=== PATIENT | female | born 1980 | race African-American/Black ===

== ENCOUNTER 2016-12-15 09:35 | Inpatient (IN) | payer OTHER ==
[~2016-12-15] VITALS: Ht 160 cm; Wt 107.0 kg
[~2016-12-15 09:35] MED LIST: ANT12.5 PO; ATI1 PO; ATIVAN2 MG PO; COL100 PO; DURAGESIC100 MCG/HR TOP; FER300 PO; GABAPENTIN100 M2 PO; LAC PO; LYRICA75 M1 PO; MEDDP PO; METFORMIN ER500 M1 PO; NPHOS PO; OXY20 PO; OXYC PO; OXYCONTIN30 M1 PO; PERCOCET1 TA2 PO; PLA200 PO; PLAQUENIL200 MG; PRE5 PO; PRI20 PO; PROMETHAZINE HY25 M1 PO; PROVENTIL0.09 MG/A1 INH; SEROQUEL400 M1 PO; THERAGRAN-M1 TA4 PO; VITC PO; XANAX2 MG PO; ZIT250 PO; ZOFRAN ODT4 MG SL; ZOFRAN8 MG PO
[2016-12-15 12:35] LABS: microscopic required? NO
[2016-12-15 12:50] LABS: CALCIUM 8.5 mg/dL (8.5-10.1); CARBON DIOXIDE 27.4 mmol/L (21-32); CHLORIDE SERUM 107 mmol/L (98-107); CREATININE SERUM 0.8 mg/dL (0.6-1.0); GFR1 > 60 mL/min; GLUCOSE SERUM 91 mg/dL (74-106); POTASSIUM SERUM 3.5 mmol/L (3.5-5.1); SODIUM SERUM 141 mmol/L (136-145)
[2016-12-15 12:52] LABS: UA SPECIFIC GRAVITY 1.025 (1.005-1.035); urine erythrocyte NEGATIVE (NEGATIVE)
[2016-12-15 12:56] LABS: ALKALINE PHOSPHATASE 84 U/L (46-116); ALT/SGPT 19 U/L (14-59); AST/SGOT 7 U/L (15-37); BILIRUBIN TOTAL 0.2 mg/dL (0.20-1.00); CHOLESTEROL 192 mg/dL (<200); LIPASE 122 IU/L (73-393); TOTAL PROTEIN, SERUM 7.4 g/dL (6.4-8.2); TRIGLYCERIDES 57 mg/dL (<150)
[2016-12-15 12:57] LABS: ALBUMIN 3.3 g/dL (3.4-5.0); CHOLESTEROL/HDL RATIO 2.3; HDL CHOLESTEROL 82 mg/dL (40-60)
[2016-12-15 13:02] LABS: BASOPHIL % 0.6 % (0-2); PLATELET COUNT 232 x10^3mcL (130-400)
[2016-12-15 13:05] LABS: T3 TOTAL 1.2 ng/mL
[2016-12-15 13:28] LABS: RED CELL DISTRIBUTION WIDTH 14.9 % (11.5-14.5)
[2016-12-15 13:33] LABS: FREE THYROXINE INDEX 3.4 ug/dL (1.4-4.5); T4(THYROXINE) 11.6 ug/dL (4.7-13.3)
[2016-12-15 13:49] LABS: rbc morphology (normal/abnorm) ABNORMAL (NORMAL)
[2016-12-15 13:50] LABS: target cell (codocyte) 1+
[2016-12-15 15:10] LABS: PHOSPHOROUS 2.6 mg/dL (2.5-4.9)
[2016-12-15 15:12] LABS: AMPHETAMINE QUAL UR NONE DETECTED (NEG <=1000)
[2016-12-15] MEDS ORDERED: IBUPROFEN400 MG PO (15:19)
[2016-12-15] MEDS ORDERED: XANAX2 MG PO (15:20)
[2016-12-15] MEDS ORDERED: METFORMIN HCL750 MG PO (15:20)
[2016-12-15] MEDS ORDERED: APAP/OXYCODONE1 TA4 PO (15:21)
[2016-12-15 15:52] VITALS: BP 140/85
[2016-12-15 21:25] VITALS: BP 117/78
[2016-12-16 05:49] VITALS: BP 135/82
[2016-12-16 06:03] LABS: PLATELET COUNT 223 x10^3mcL (130-400)
[2016-12-16 06:17] LABS: BASOPHIL % 0 % (0-2); RED CELL DISTRIBUTION WIDTH 15.3 % (11.5-14.5)
[2016-12-16 06:19] LABS: CALCIUM 8.8 mg/dL (8.5-10.1); CARBON DIOXIDE 22.7 mmol/L (21-32); CHLORIDE SERUM 106 mmol/L (98-107); CREATININE SERUM 0.9 mg/dL (0.6-1.0); GFR1 > 60 mL/min; GLUCOSE SERUM 188 mg/dL (74-106); POTASSIUM SERUM 4.2 mmol/L (3.5-5.1); SODIUM SERUM 140 mmol/L (136-145)
[2016-12-16 06:45] LABS: rbc morphology (normal/abnorm) ABNORMAL (NORMAL)
[2016-12-16 09:43] VITALS: BP 141/100
[2016-12-16 14:00] VITALS: BP 138/86
[2016-12-16 16:26] VITALS: BP 145/82
[2016-12-16 21:52] VITALS: BP 138/90
[2016-12-17 05:46] VITALS: BP 123/81
[2016-12-17 06:32] LABS: CALCIUM 8.7 mg/dL (8.5-10.1); CARBON DIOXIDE 28.6 mmol/L (21-32); CHLORIDE SERUM 106 mmol/L (98-107); GFR1 > 60 mL/min; GLUCOSE SERUM 91 mg/dL (74-106); MAGNESIUM 2.2 mg/dL (1.8-2.4); POTASSIUM SERUM 3.8 mmol/L (3.5-5.1); SODIUM SERUM 141 mmol/L (136-145)
[2016-12-17 06:42] LABS: BASOPHIL % 0.5 % (0-2); PLATELET COUNT 230 x10^3mcL (130-400)
[2016-12-17 06:44] LABS: RED CELL DISTRIBUTION WIDTH 15.2 % (11.5-14.5)
[2016-12-17 07:15] LABS: rbc morphology (normal/abnorm) ABNORMAL (NORMAL)
[2016-12-17 09:28] VITALS: BP 126/76
[2016-12-17 14:20] VITALS: BP 131/90
[2016-12-17 19:02] VITALS: BP 128/85
[2016-12-17 20:27] VITALS: BP 143/99
[2016-12-18 05:50] VITALS: BP 139/76
[2016-12-18 06:17] LABS: BASOPHIL % 0.1 % (0-2); PLATELET COUNT 183 x10^3mcL (130-400)
[2016-12-18 06:19] LABS: RED CELL DISTRIBUTION WIDTH 15.3 % (11.5-14.5)
[2016-12-18 06:55] LABS: CALCIUM 8.5 mg/dL (8.5-10.1); CHLORIDE SERUM 106 mmol/L (98-107); CREATININE SERUM 0.8 mg/dL (0.6-1.0); GFR1 > 60 mL/min; GLUCOSE SERUM 135 mg/dL (74-106); POTASSIUM SERUM 3.7 mmol/L (3.5-5.1); SODIUM SERUM 138 mmol/L (136-145)
[2016-12-18 09:28] VITALS: BP 139/76
[2016-12-18 09:56] VITALS: BP 152/95
[2016-12-18 11:21] VITALS: Ht 160 cm; Wt 107.0 kg
[2016-12-18 13:35] VITALS: BP 135/75
[2016-12-18 17:53] VITALS: BP 124/73
[2016-12-18 21:11] VITALS: BP 134/69
[2016-12-19 06:07] VITALS: BP 116/80
[2016-12-19 06:40] LABS: PLATELET COUNT 186 x10^3mcL (130-400)
[2016-12-19 06:45] LABS: BASOPHIL % 0 % (0-2)
[2016-12-19 06:57] LABS: CARBON DIOXIDE 23.9 mmol/L (21-32); CHLORIDE SERUM 110 mmol/L (98-107); CREATININE SERUM 1.1 mg/dL (0.6-1.0); GFR1 > 60 mL/min; GLUCOSE SERUM 125 mg/dL (74-106); MAGNESIUM 1.9 mg/dL (1.8-2.4); PHOSPHOROUS 2.2 mg/dL (2.5-4.9); POTASSIUM SERUM 3.3 mmol/L (3.5-5.1); SODIUM SERUM 143 mmol/L (136-145)
[2016-12-19 07:44] LABS: rbc morphology (normal/abnorm) ABNORMAL (NORMAL)
[2016-12-19 10:11] VITALS: BP 140/76
[2016-12-19 13:42] VITALS: BP 146/84
[2016-12-19 17:17] VITALS: BP 138/76
[2016-12-19 22:20] VITALS: BP 139/78
[2016-12-20 04:56] VITALS: BP 147/77
[2016-12-20 06:39] LABS: BASOPHIL % 0.3 % (0-2); PLATELET COUNT 199 x10^3mcL (130-400)
[2016-12-20 06:41] LABS: CALCIUM 8.6 mg/dL (8.5-10.1); CHLORIDE SERUM 106 mmol/L (98-107); GFR1 > 60 mL/min; GLUCOSE SERUM 158 mg/dL (74-106); MAGNESIUM 2.3 mg/dL (1.8-2.4); PHOSPHOROUS 2.9 mg/dL (2.5-4.9); POTASSIUM SERUM 3.7 mmol/L (3.5-5.1); SODIUM SERUM 139 mmol/L (136-145)
[2016-12-20 06:43] LABS: RED CELL DISTRIBUTION WIDTH 15.1 % (11.5-14.5)
[2016-12-20 08:50] VITALS: BP 130/70
[2016-12-20 13:50] VITALS: BP 139/69
[2016-12-20] MEDS ORDERED: METHOCARBAMOL500 MG PO (14:59)
[2016-12-20] MEDS ORDERED: CYMBALTA30 M1 PO (15:03)
[2016-12-20] MEDS ORDERED: RES15 PO (15:03)
[2016-12-20] MEDS ORDERED: PREDNISONE50 MG PO (15:08)
[2016-12-20 15:14] VITALS: BP 139/69
[2016-12-20] MEDS ORDERED: PREDNISONE2.5 MG PO (15:19)
[2016-12-20] MEDS ORDERED: PERCOCET1 TA5 PO (15:29)
== END 2016-12-20 18:26 | disposition home or self-care (01) | DRG 346 ==
LOC: ED 09:35 → DU 14:21 → MU 14:21 → DU 15:54 → MU 12-19 19:13
PROVIDERS: Family Medicine; Specialist; ADMIT Family Medicine
PROC: 05HM33Z Insertion of Infusion Device into Right Internal Jugular Vein, Percutaneous Approach (ICD-10-PCS; principal; 2016-12-16)
PROC: B5131ZA Fluoroscopy of Right Jugular Veins using Low Osmolar Contrast, Guidance (ICD-10-PCS; 2016-12-16)
DX: M32.9 Systemic lupus erythematosus, unspecified (principal); E44.0 Moderate protein-calorie malnutrition; F33.9 Major depressive disorder, recurrent, unspecified; E66.2 Morbid (severe) obesity with alveolar hypoventilation; Z68.41 Body mass index [BMI] 40.0-44.9, adult; E28.2 Polycystic ovarian syndrome; E11.9 Type 2 diabetes mellitus without complications; Z79.891 Long term (current) use of opiate analgesic; Z79.52 Long term (current) use of systemic steroids; Z79.84 Long term (current) use of oral hypoglycemic drugs; Z88.5 Allergy status to narcotic agent; Z88.8 Allergy status to other drugs, medicaments and biological substances; J45.909 Unspecified asthma, uncomplicated; M79.7 Fibromyalgia; Z90.49 Acquired absence of other specified parts of digestive tract; F41.1 Generalized anxiety disorder
CPT/HCPCS: 82962; 83880; 84439; 92610; 94150; J1170; J1200; J1642; J1644; J2001; J2060; J2405; J2550; J2930; J3535; J7030; J7512; J7620; J7626; Q0092; Q0162; Q0163

== ENCOUNTER 2017-07-01 16:07 | Emergency (ER) | payer OTHER ==
[~2017-07-01] VITALS: Ht 160 cm; Wt 96.6 kg
[~2017-07-01 16:07] MED LIST changes: +APAP/OXYCODONE1 TA4 PO; +CYMBALTA30 M1 PO; +IBUPROFEN400 MG PO; +METFORMIN HCL750 MG PO; +METHOCARBAMOL500 MG PO; +PERCOCET1 TA5 PO; +PREDNISONE2.5 MG PO; +PREDNISONE50 MG PO; +RES15 PO
[2017-07-01 16:13] VITALS: Ht 160 cm; Wt 96.6 kg
[2017-07-01 17:02] LABS: UA SPECIFIC GRAVITY <=1.005 (1.005-1.035); microscopic required? YES; urine erythrocyte 3+ (NEGATIVE)
[2017-07-01 17:06] LABS: BASOPHIL % 1.6 % (0-2); PLATELET COUNT 214 x10^3mcL (130-400)
[2017-07-01 17:09] LABS: RED CELL DISTRIBUTION WIDTH 17.6 % (11.5-14.5)
[2017-07-01 18:48] VITALS: BP 118/64
== END 2017-07-01 18:48 | disposition home or self-care (01) ==
LOC: ED 16:07
PROVIDERS: Emergency Medicine
DX: O20.0 Threatened abortion (principal); J45.901 Unspecified asthma with (acute) exacerbation; M79.7 Fibromyalgia; M32.9 Systemic lupus erythematosus, unspecified; K31.84 Gastroparesis; N93.9 Abnormal uterine and vaginal bleeding, unspecified; Z91.018 Allergy to other foods; Z88.5 Allergy status to narcotic agent; Z3A.09 9 weeks gestation of pregnancy
CPT/HCPCS: 36415; J7613